=== PATIENT | male | born 1950 | race Hispanic/Latino ===

== ENCOUNTER 2017-01-09 17:05 | Emergency (ER) | payer MEDICARE, BC ==
[2017-01-09 17:10] VITALS: BMI 26.6
[2017-01-09 17:19] VITALS: BP 143/84; PULSE 94; RESP 19; TEMP 98.7; O2SAT 98
[2017-01-09] MEDS ORDERED: Lidocaine 1%/Epinephrine 1:100000 30 ml vial IJ ONE (17:21)
--- NOTE | 2017-01-09 17:27 | ED PDOC ---
Arrival/HPI - History of Present Illness Time/Duration: 1/2 hour Symptom Onset: Sudden Symptom Course: Unchanged Context: Work - General Time Seen by Provider: 01/09/17 17:07 - History of Present Illness Narrative History of Present Illness (Text): 01/09/17 17:24 66 year old male with past medical history fo CAD s/p stents presents for left arm laceration that occurred at work about 1/2 hour ago. Patient states that he was removing a ceramic sink that broke and cut him. Patient does not know the date of his last tetnus shot. (Frieda Sauceda) Past Medical History - Provider Review Nursing Documentation Reviewed: Yes - Travel History Have you recently traveled outside [place] w/in the past 3 mons?: Yes - Infectious Disease Hx of Infectious Diseases: None - Cardiac Hx Cardiac Disorders: Yes Hx NH: Yes Hx Pacemaker: No Other/Comment: 4 stents - Pulmonary Hx Respiratory Disorders: No - Neurological Hx Neurological Disorder: No Hx Paralysis: No - HEENT Hx HEENT Disorder: No - Renal Hx Renal Disorder: No - Endocrine/Metabolic Hx Endocrine Disorders: No - Hematological/Oncological Hx Blood Disorders: No Hx Blood Transfusions: No - Integumentary Hx Dermatological Disorder: No - Musculoskeletal/Rheumatological Hx Musculoskeletal Disorders: No - Gastrointestinal Hx Gastrointestinal Disorders: No - Genitourinary/Gynecological Hx Genitourinary Disorders: No - Psychiatric Hx Psychophysiologic Disorder: No Hx Emotional Abuse: No Hx Physical Abuse: No Hx Substance Use: No - Surgical History Hx Cardiac Catheterization: Yes Hx Coronary Stent: Yes (x4) - Anesthesia Hx Anesthesia: Yes Hx Anesthesia Reactions: No Hx Malignant Hyperthermia: No - Suicidal Assessment Feels Threatened In Home Enviroment: No Family/Social History - Physician Review Nursing Documentation Reviewed: Yes Family/Social History: Unknown Family HX Smoking Status: Never Smoked Hx Alcohol Use: Yes (OCCASIONAL WINE) Frequency of alcohol use: Socially Hx Substance Use: No Allergies/Home Meds Allergies/Adverse Reactions: Allergies clopidogrel bisulfate [From Plavix] Allergy (Severe, Verified 01/09/17 17:10) RASH naproxen sodium [From Aleve] Allergy (Severe, Verified 01/09/17 17:10) BLISTERS Home Medications: Home Meds Medication Instructions Recorded Confirmed Aspirin [Adult Low Dose Aspirin EC] 81 mg PO DAILY 07/04/16 01/09/17 Prasugrel [Effient] 10 mg PO DAILY 07/23/16 01/09/17 Rosuvastatin Calcium [Crestor] 20 mg PO DAILY 07/23/16 01/09/17 Review of Systems - Review of Systems Constitutional: Normal. absent: Fatigue, Fevers Eyes: Normal. absent: Vision Changes, Photophobia ENT: Normal. absent: Sore Throat, Rhinorrhea Respiratory: Normal. absent: SOB, Cough, Wheezing Cardiovascular: Normal. absent: Chest Pain, Edema, Calf Pain, Syncope Gastrointestinal: Normal. absent: Abdominal Pain, Constipation, Diarrhea, Nausea, Vomiting Genitourinary Male: Normal. absent: Dysuria, Frequency Musculoskeletal: Normal. absent: Arthralgias, Back Pain, Neck Pain Skin: Laceration (left arm ) Neurological: Normal. absent: Headache, Dizziness Endocrine: Normal. absent: Diaphoresis, Polyuria Hemo/Lymphatic: Normal. absent: Adenopathy, Easy Bleeding Physical Exam Vital Signs Reviewed: Yes Temperature: Afebrile Blood Pressure: Normal Pulse: Regular Respiratory Rate: Normal Appearance: Positive for: Well-Appearing, Non-Toxic, Comfortable Pain Distress: None Mental Status: Positive for: Alert and Oriented X 3 - Systems Exam Head: Present: Atraumatic, Normocephalic Extroacular Muscles: Present: EOMI Conjunctiva: Present: Normal Mouth: Present: Moist Mucous Membranes Neck: Present: Normal Range of Motion Respiratory/Chest: No: Respiratory Distress, Accessory Muscle Use Cardiovascular: Present: Peripheal Pulses Present Abdomen: No: Tenderness, Distention, Peritoneal Signs Lower Extremity: Present: Normal ROM. No: Edema, CALF TENDERNESS Neurological: Present: GCS=15, Speech Normal Skin: Present: Warm, Dry, Laceration (about 3 inches on left forearm ) Psychiatric: Present: Alert, Oriented x 3, Normal Insight, Normal Concentration Medical Decision Making ED Course and Treatment: 01/09/17 17:27 66 year old male presents for left forearm laceration. Will suture lac and give patient tetnus shot. (Frieda Sauceda) 01/10/17 09:24 Laceration repair completed by resident with my supervision. Patient was instructed that he needs suture removal in 7 days. He can return to the ED for suture removal. He was advised to return if laceration becomes red, warm, swollen or pus drainage or any other concern. (Timi Dolan) - Medication Orders Current Medication Orders: Discontinued Medications Lidocaine/Epinephrine (Lidocaine 1%/Epinephrine 1:028238 30 Ml) 30 ml IJ ONCE ONE Stop: 01/09/17 17:22 Last Admin: 01/09/17 17:42 Dose: Not Given Non-Admin Reason: Agitation Tetanus/Reduced Diphtheria/Acell Pertussis (Boostrix Vaccine Inj) 0.5 ml IM .ONCE ONE Stop: 01/09/17 17:29 Last Admin: 01/09/17 18:10 Dose: 0.5 ml Procedures - Time-Out Type of Procedure: laceration suturing - Laceration/Wound Repair Left Anterior Distal Arm Wound Length (cm): 7.6 Wound's Depth, Shape: superficial, linear Wound Explored: clean Irrigated w/ Saline (ccs): 50 (no foreign body noted ) Betadine Prep?: Yes Anesthesia: Lidocaine w/ Epi Volume Anesthetic (ccs): 10 Wound Debrided: moderate Wound Repaired With: Sutures Suture Size/Type: 4:0 Number of Sutures: 9 Layer Closure?: No Wound Complexity: Simple Sterile Dressing Applied?: No Splint Applied?: No Sling Applied?: No Disposition/Present on Arrival - Present on Arrival Any Indicators Present on Arrival: No History of DVT/PE: No History of Uncontrolled Diabetes: No Urinary Catheter: No History of Decub. Ulcer: No History Surgical Site Infection Following: None - Disposition Have Diagnosis and Disposition been Completed?: Yes Disposition Time: 18:25 Patient Plan: Discharge - Disposition Diagnosis: Laceration Disposition: HOME/ ROUTINE Condition: GOOD Additional Instructions: Les Hagen, thank you for letting us take care of you today. Your provider was Dr. Frieda Sauceda. You were treated for left arm laceration. The emergency medical care you received today was directed at your acute symptoms. If you were prescribed any medication, please fill it and take as directed. It may take several days for your symptoms to resolve. Return to the Emergency Department if your symptoms worsen, do not improve, or if you have any other problems. Please contact your doctor or call one of the physicians/clinics you have been referred to that are listed on the Patient Visit Information form that is included in your discharge packet. Bring any paperwork you were given at discharge with you along with any medications you are taking to your follow up visit. Our treatment cannot replace ongoing medical care by a primary care provider (PCP) outside of the emergency department. Thank you for allowing the [facility] team to be part of your care today. If you had an X-Ray or CT scan: A Radiologist will review the ED reading if any change in treatment is needed we will contact you. If you had a blood, urine, or wound culture: It will take several days for the results, if any change in treatment is needed we will contact you. If you had an STI test: It will take 48 hours for the results. Please call after 1 week if you have not heard back. Referrals: Diego Escamilla MD [Primary Care Provider] - Follow up with primary Forms: [employer] ([employer])
[2017-01-09] MEDS ORDERED: TDAP Vaccine 0.5 mL Syr IM ONE (17:28)
== END 2017-01-09 18:53 | disposition home or self-care (01) ==
LOC: ED 17:05
DX: S41.112A Laceration without foreign body of left upper arm, initial encounter (principal); W45.8XXA Other foreign body or object entering through skin, initial encounter; Y99.0 Civilian activity done for income or pay; Z23 Encounter for immunization